=== PATIENT | male | born 1995 | race Caucasian/White ===

== ENCOUNTER 2017-01-17 00:45 | Emergency (ER) | payer MEDICAID ==
[~2017-01-17] VITALS: Ht 188 cm; Wt 123.0 kg
[2017-01-17] MEDS ORDERED: HYDROCODONE/ACETAMINOPHEN 10/325MG TABLET PO ONE (02:15)
[2017-01-17 02:40] VITALS: BP 158/88
== END 2017-01-17 02:48 | disposition home or self-care (01) ==
LOC: ER 00:45
DX: K08.9 Disorder of teeth and supporting structures, unspecified (principal); J45.909 Unspecified asthma, uncomplicated; F12.10 Cannabis abuse, uncomplicated
CPT/HCPCS: 99283

== ENCOUNTER 2017-03-12 14:07 | Emergency (ER) | payer MEDICAID ==
[~2017-03-12] VITALS: Ht 182.9 cm; Wt 121.0 kg
[2017-03-12] MEDS ORDERED: BACITRACIN ZINC OINT UDPKT TOP ONE (17:00)
[2017-03-12 17:28] VITALS: BP 152/74
== END 2017-03-12 17:38 | disposition home or self-care (01) ==
LOC: ER 16:16
DX: S91.201A Unspecified open wound of right great toe with damage to nail, initial encounter (principal); J45.909 Unspecified asthma, uncomplicated; F17.200 Nicotine dependence, unspecified, uncomplicated; F12.10 Cannabis abuse, uncomplicated; W22.8XXA Striking against or struck by other objects, initial encounter; Y93.89 Activity, other specified; Y92.89 Other specified places as the place of occurrence of the external cause; Y99.8 Other external cause status
CPT/HCPCS: 99282; 99283